=== PATIENT | male | born 1985 | race African-American/Black ===

== ENCOUNTER 2019-12-21 13:06 | Emergency (ER) | payer OTHER ==
[~2019-12-21] VITALS: Ht 177.8 cm; Wt 76.7 kg
== END 2019-12-21 21:34 | disposition home or self-care (01) ==
LOC: ER 13:06
DX: K05.00 Acute gingivitis, plaque induced (principal); S90.31XA Contusion of right foot, initial encounter; W22.8XXA Striking against or struck by other objects, initial encounter; Y93.01 Activity, walking, marching and hiking; Y92.838 Other recreation area as the place of occurrence of the external cause; Y99.8 Other external cause status